=== PATIENT | male | born 1995 | race African-American/Black ===

== ENCOUNTER 2016-07-18 18:42 | Emergency (ER) | payer BC, OTHER ==
--- NOTE | ~2016-07-18 | CR72 ---
[facility] A Service of [facility] & [facility] RADIOLOGY TEXT RESULTS PATIENT: LAUREN MCGOVERN LOCATION: [facility] : [birth year] UNIT #: [id number] AGE: [address]: Toñito Ramos DO SEX: M ORDER DR: [id number] [facility] [address] [place], [place] [address] [id number] E MR#: [id number] Acc #: [id number] NAME: LAUREN MCGOVERN : 1995 SEX: M STUDY DATE/TIME: 07/18/2016 18:39 UNIT: [facility] ROOM: STUDY DESCRIPTION: CR Chest Single View Portable Attending Physician: Toñito Ramos D.O. Ordering Physician: Toñito Ramos D.O. Primary Care Physician: Rosario Reinoso M.D. MEDICAL IMAGING REPORT This report is preliminary unless electronic signature is present EXAM Portable chest HISTORY Chest pain, shortness of air onset 07/18/2016 FINDINGS Portable view of the chest demonstrates mild pulmonary hyperinflation. No focal airspace disease or consolidation, no effusions. Heart and mediastinum unremarkable. Osseous structures appear normal. Radiodensities overlying the right shoulder probably related to the patient's hair or clothing. Overall pulmonary hyperinflation could indicate reactive airway disease but no acute findings. Dictated by... Priscilla Wynn M.D. THIS IS AN ELECTRONICALLY VERIFIED REPORT Priscilla Wynn M.D. at 07/19/2016 10:59 PM GEOFFREY/liana TD: 07/18/2016 23:18 JOB #: [id number] MEDICAL IMAGING REPORT Page 1 of 1 COPY
--- NOTE | ~2016-07-18 | EKG ---
PATIENT: LAUREN MCGOVERN UNIT #: [id number] Ventricular Rate: 101 BPM Atrial Rate: 101 BPM P-R Interval: 146 ms QRS Duration: 108 ms Q-T Interval: 328 ms QTC Calculation(Bezet): 425 ms P [place]: 66 degrees Calculated R [place]: -17 degrees Calculated T [place]: 87 degrees Diagnosis Line: Sinus tachycardia Diagnosis Line: Incomplete right bundle branch block Diagnosis Line: Borderline ECG Diagnosis Line: No previous ECGs available Diagnosis Line: Confirmed by AMIE BERGERON MD ([id number]) on 07/18/2016 Diagnosis Line: 11:08:24 PM INTERPRETING MD: ELYSSA QUINTERO
[~2016-07-18 18:42] MED LIST: ATROVENT HFA12.9 GM INH; FLEXERIL10 MG PO; NO MEDICATIONS; PULMICORT200 MCG/AE INH; VOLTAREN75 MG PO
[2016-07-18 19:06] LABS: BASOPHIL% 0.5 % (0-2.5); EOSINOPHIL# 0.1 X10e3 (0-0.7); HEMOGLOBIN 15.8 gm/dL (13.0-16.0); LYMPHOCYTE# 1.8 X10e3 (1.0-3.5); LYMPHOCYTE% 18.5 % (17.0-45.0); MEAN CELL VOLUME 80.2 FL (83-96); MEAN CORPUSCULAR HEMOGLOBIN 25.9 PG (28-34); MEAN CORPUSCULAR HGB CONC 32.3 g/dL (30-36); MEAN PLATELET VOLUME 8.7 FL (6.5-11.5); MONOCYTE# 0.6 X10e3 (0-1.0); MONOCYTE% 5.8 % (3.0-12.0); NEUTROPHIL# 7.1 X10e3 (1.5-7.1); NEUTROPHIL% 74.2 % (40-75); PLATELET COUNT 283 X10e3 (140-420); RED BLOOD COUNT 6.11 X10e (3.90-5.60); RED CELL DISTRIBUTION WIDTH 12.7 % (11.0-15.5); WHITE BLOOD COUNT 9.6 X10e3 (4.0-10.5)
[2016-07-18 19:13] LABS: POC - CKMB <1.0 ng/mL (0.0-7.9); POC - TROPONIN <0.05 ng/mL (<=0.05)
[2016-07-18 19:16] LABS: DIFF IND NO
[2016-07-18 19:21] LABS: INR 1.2; PARTIAL THROMBOPLASTIN TIME 28.7 SECONDS (23.5-31.3); PROTHROMBIN TIME (PATIENT) 12.3 SECONDS (9.6-11.5)
[2016-07-18 19:32] LABS: ALBUMIN SERUM 5.1 g/dL (3.5-5.0); BILIRUBIN, DIRECT 0.2 mg/dL (0.0-0.2); BILIRUBIN,TOTAL 1.2 mg/dL (0.2-2.0); BUN/CREATININE RATIO 13.33; CALCIUM SERUM 9.4 mg/dL (8.4-10.2); CREATININE SERUM 0.9 mg/dL (0.6-1.4); POTASSIUM 3.7 mmol/L (3.5-5.1); PROTEIN TOTAL SERUM 8.4 g/dL (6.0-8.3)
[2016-07-18 20:40] LABS: POC - CKMB <1.0 ng/mL (0.0-7.9); POC - TROPONIN <0.05 ng/mL (<=0.05)
== END 2016-07-18 21:25 | disposition home or self-care (01) ==
LOC: CED 18:42
PROVIDERS: Emergency Medicine
DX: R07.89 Other chest pain (principal); J45.909 Unspecified asthma, uncomplicated; F17.210 Nicotine dependence, cigarettes, uncomplicated; Z88.0 Allergy status to penicillin
CPT/HCPCS: 71010; 80048; 80076; 82553; 84484; 85025; 85379; 85610; 85730; 93005; 99284; J1885